=== PATIENT | male | born 1975 | race Hispanic/Latino ===

== ENCOUNTER → 2025-07-26 | Day surgery (SDC) | payer OTHER ==
[~2025-07-26] MED LIST: HYOSCYAMINE SULFATE 0.5 MG/ML INJ ONE; LACTATED RINGER'S 1,000 ML ONE; LIDOCAINE HCL 2% LOCAL INJ 5 ML SDV VIAL INJ ONE; PROPOFOL IV EMULSION 50 ML IV ONE
[2025-07-26 15:45] VITALS: TEMP 98.5
[2025-07-26 16:05] VITALS: BP 131/86; PULSE 86; RESP 18; O2SAT 99
== END | disposition home or self-care (01) ==
LOC: OR 13:28
PROVIDERS: ATTEND Internal Medicine Gastroenterology
DX: Z12.11 Encounter for screening for malignant neoplasm of colon (principal); D12.5 Benign neoplasm of sigmoid colon; K64.8 Other hemorrhoids; R76.8 Other specified abnormal immunological findings in serum; E11.9 Type 2 diabetes mellitus without complications; E78.5 Hyperlipidemia, unspecified; E66.9 Obesity, unspecified; Z01.810 Encounter for preprocedural cardiovascular examination; Z79.84 Long term (current) use of oral hypoglycemic drugs; Z79.899 Other long term (current) drug therapy; Z68.34 Body mass index [BMI] 34.0-34.9, adult
CPT/HCPCS: 36415; 45385; 82948; 93005; J1980; J2003; J2704; J7121; 45384

== ENCOUNTER → 2025-08-02 | Outpatient (REF) | payer OTHER | LOC: US 07:27 | PROVIDERS: ATTEND Nurse Practitioner | DX: R74.8 Abnormal levels of other serum enzymes (principal) | CPT/HCPCS: 76700 ==